=== PATIENT | male | born 1980 | race African-American/Black ===

== ENCOUNTER 2022-01-28 22:51 | Emergency (ER) | payer SELFPAY | END 2022-01-29 00:44 | disposition home or self-care (01) | LOC: ERS 22:51 | DX: S00.03XA Contusion of scalp, initial encounter (principal); Y08.02XA Assault by strike by baseball bat, initial encounter | CPT/HCPCS: 70450; 74177 ==

== ENCOUNTER 2024-08-27 09:05 | Emergency (ER) | payer SELFPAY | END 2024-08-27 10:18 | disposition home or self-care (01) | LOC: ERS 09:05 | DX: B34.9 Viral infection, unspecified (principal); F17.210 Nicotine dependence, cigarettes, uncomplicated | CPT/HCPCS: 87428; 99283 ==